=== PATIENT | female | born 1935 | race Caucasian/White ===

== ENCOUNTER 2019-09-22 19:45 | Emergency (ER) | payer MEDICARE ==
[~2019-09-22] VITALS: Ht 161.3 cm; Wt 63.5 kg
--- OUTSIDE RECORDS SUMMARY | 2019-09-22 19:47 | XMS REPORT | Continuity of Care Document ---
Author Author [facility] Address [address] [place] [address] ;ext= Care Team Providers Care Central Office Operator Name Role Phone BEVERLEY DONATO [facility]phys [facility] Admission Diagnosis Code Admission Diagnosis Date [id number] Injury of finger Social History Element Description Code Description Smoking Status Code System Start Date End Date Smoking Status [id number] Never smoker SNOMED-CT Problems Code Code System Problem Name Start Date End Date Status [id number] SNOMED-CT Sprain of wrist 10/25/2018 Active RASH Unknown Active Medications RxNorm Medication Dose Route Instructions Indications Start Date End Date Status [id number] nebivolol 10 MG Oral Tablet 10 milligram oral orally every day Active Synthroid Oral 50 microgram oral orally every day Active 445461 tramadol hydrochloride 50 MG Oral Tablet 50 milligram oral orally every 6 hours as needed. (as needed for pain) pain Active Allergies * No Known Allergies Results Radiology Results Order: [id number] XR WRIST COMP MIN 3 VWS* Exam Completion Date:10/24/2018 15:26 Left wrist 3 views:History: FallPA, oblique and lateral views were obtained. No fracture or dislocation isidentified. There are prominent degenerative changes a t the first CMC joint andscaphomultangular joint. The remaining joint spaces are well-maintained. Thereis mild osteopenia. Mild soft tissue swelling is present. Impression: No acute bony or joint abnormality.This final report was electronica lly signed by Dr Pierce Araiza MD 10/24/20184:17 PMDictated By: HAILEY ARAIZA DDate: 10/24/2018 16:17 Vital Signs Vitals Value Date Body Temperature 98 F 10/24/2018 Pulse Rate 85 (beats)/min 10/24/2018 Respiratory Rate 18 (breaths)/min 10/24/2018 O2% BldC Oximetry 100 % 10/24/2018 BP Systolic 140 mmHg 10/24/2018 BP Diastolic 70 mmHg 10/24/2018 Height 64 in 10/24/2018 Weight Measured 140 lbs 10/24/2018 BSA (Body Surface Area) 1.60487 m2 10/24/2018 BMI (Body Mass Index) 24.1 kg/m2 10/24/2018 Advance Directives POA/LIW Directive Type Effective Date [employer] Room Operator Notes Supporting Document Name Address Phone No Directive Type specified 09/17/2012 21:27 Not Specified Not Specified Not Specified None No Patient HAS Living Will Directive Type Effective Date [employer] Room Operator Notes Supporting Document Name Address Phone No Directive Type specified 11/08/2015 12:32 Not Specified Not Specified Not Specified None No Patient does NOT have Living Will Directive Type Effective Date [employer] Room Operator Notes Supporting Document Name Address Phone No Directive Type specified 04/01/2017 09:19 Not Specified Not Specified Not Specified None No Family History * No Data Reported Plan of Care * No data in the system Procedures Code Code System Procedure Name Target Site Date of Procedure XR WRIST COMP MIN 3 VWS 10/24/2018 16:23 Encounters Date Code Diagnosis Status (ICD10) - H68533F UNSPECIFIED SPRAIN LT WRIST INITIAL Active Immunizations * No data in the system Functional Status * No data in the system Hospital Discharge Instructions * Discharge Instructions 2* Discharge Diagnosis* wrist sprain * Important Information* Consult your physician or return to the Emergency Department immediately if worse, if not better as expected, or if any problems arise. * Follow Up Care* Yes * Important Information* Please understand that you have received care only on an emergency basis. If your condition does not improve, you should call your personal physician for follow-up care. If you do not have a physician, you may call the referred physician listed. * If you have questions about your care or these discharge instructions, you may call the Emergency Department. Please take your discharge paperwork with you to any follow-up appointments. * Follow Up Care* Patient To Schedule * Follow-Up With:* Primary Care Physician * Activity Level* As tolerated, unrestricted * Diet* Regular * Patient Teaching* Patient education provided
--- OUTSIDE RECORDS SUMMARY | 2019-09-22 19:47 | XMS REPORT ---
Author Author [facility] Address Unknown Phone Unavailable Care Team Providers Care Marketing Communications Manager Name Role Phone Kari MERCADO Unavailable Unavailable DR YANI RUEDA Unavailable Unavailable AMILCAR AHN Unavailable Unavailable Problems This patient has no known problems. Allergies, Adverse Reactions, Alerts This patient has no known allergies or adverse reactions. Medications This patient has no known medications. Results Test Description Test Time Test Comments Text Results Atomic Results Result Comments D-DIMER QUANTITATIVE 2019-06-16 13:18:00 D DIMER (test code=D DIM) 0.45 mg/L FEU 0.19-0.50 METHOD CHANGE: 08/17/2012 Due to the discontinued mehodology currently in use, a change in the testing method is necessary. The Reference Ranges will change dramatically, and results are obtained by the observance of clotting activation mesured on the [employer] instruments. This same methodology is currently in use for PT/INR , PTT, AND HEPARIN testing in our Labs. The D-Dimer assay is an aid in the evaluation of thromboembolic events, as in DIC, DVT, Pulmonary Embolism, and other thromboembolic diseases, and should not be used without other diagnostic measures, to properly diagnose and treat thromboembolic disease. REFERENCE RANGE: 0.19 - 0.50 mg/L FEU (Fibrinogen Equivalent Units) Cut-Off Value is: > .50 mg/L FEU Note: Results greater than (>) the Cut-Off are to be considered POSITIVE, and significant in the evaluation of thromboembolic diseases. Results less than (<) the Cut-Off are to be considered NEGATIVE, and a low probability of thromboembolic disease. TROPONIN-I [id number] 13:11:00* Test Item Value Reference Range Comments Troponin-I (test code=TROP) <0.015 ng/ml 0.000-0.034 The 99th Percentile URL is 0.045 ng/mL for the Siemens [place] Troponin I. The Joint Society of Cardiology/[place] College of Cardiology (ESC/ACC) and the National Academy of Clinical Biochemistry Standards of Laboratory Practices (NACB) recommends that the diagnosis of AMI includes the presence of clinical history suggestive of Acute Coronary Syndrome (ACS) and a maximum concentration of cardiac troponin exceeding the 99th percentile of a normal reference population [upper reference limit (URL)] on at least one occasion during the first 24 hours after the clinical event. [id number] 11:32:00* Test Item Value Reference Range Comments Glucose (test code=GLU) 99 mg/dl 75-110 BUN (test code=BUN) 11.0 mg/dl 6.0-17.0 Creatinine (test code=CREA) 0.7 mg/dl 0.4-1.2 Sodium (test code=NA) 137 mmol/l 137-145 Potassium (test code=K) 4.1 mmol/l 3.5-5.0 Chloride (test code=CL) 105 mmol/l 98-107 CO2 (test code=CO2) 29 mmol/l 22-30 Calcium (test code=CALC) 9.4 mg/dl 8.4-10.2 T Protein (test code=TP) 6.4 gm/dl 5.1-8.7 Albumin (test code=ALB) 3.6 gm/dl 3.5-4.6 A/G Ratio (test code=AGRAT) 1.3 % 1.1-2.2 AST (SGOT) (test code=AST) 13 U/L 11-36 ALT (SGPT) (test code=ALT) 20 U/L 11-40 Alkaline Phos (test code=ALKP) 173 U/L 47-114 Total Bilirubin (test code=TBIL) 0.5 mg/dl 0.2-1.2 Globulin (test code=GLOBU) 2.8 gm/dl 2.3-3.5 Calcium, Corrected (test code=CALCCORR) 9.7 mg/dl 8.4-10.2 Various formulas exist for corrected serum calcium results, each yielding different values. This corrected result was based on the formula: Corrected Calcium=SerumCalcium + [0.8 * ( 4 - SerumAlbumin)] EGFR if (test code=EGFRAA) >60 mL/min/1.73m\\S\\2 EGFR if Non- (test code=EGFRNA) >60 mL/min/1.73m\\S\\2 Estimated Glomerular Filtration Rate (eGFR) Reference Intervals Decision Points for 18 years and older and average body mass: >=60 Does not exclude kidney disease. 30 - 59 Suggests moderate chronic kidney disease and indicates the need for further investigation including assessment of proteinuria and cardiovascular factors. < 30 Usually indicates a need for referral for assessment and management of chronic kidney failure. PRO-BNP(B-Type Natriuretic Peptide)2019-06-16 11:32:00* Test Item Value Reference Range Comments Pro-BNP(B-Peptide) (test code=PROBNP) 287 pg/ml 0-450 TROPONIN-I [id number] 11:32:00* Test Item Value Reference Range Comments Troponin-I (test code=TROP) <0.015 ng/ml 0.000-0.034 The 99th Percentile URL is 0.045 ng/mL for the Siemens [place] Troponin I. The Joint Society of Cardiology/[place] College of Cardiology (ESC/ACC) and the National Academy of Clinical Biochemistry Standards of Laboratory Practices (NACB) recommends that the diagnosis of AMI includes the presence of clinical history suggestive of Acute Coronary Syndrome (ACS) and a maximum concentration of cardiac troponin exceeding the 99th percentile of a normal reference population [upper reference limit (URL)] on at least one occasion during the first 24 hours after the clinical event. [id number] 11:29:00* Test Item Value Reference Range Comments Magnesium (test code=MG) 2.3 mg/dl 1.6-2.3 XR CHEST AP/PA 1 [id number] 11:15:11Exam: AP portable chestDATE OF EXAM: 06/16/2019 10:47 AMINDICATION: Chest painThe lungs are clear. The cardiomediastinal silhouette is within normal limits.The bony thorax shows no significant abnormality.Impression:No active cardiopulmonary disease.This final report was electronically signed by Dr Koko Araiza MD 06/16/201911:08 AMDictated By: KOKO ARAIZADate: 06/16/2019 11:08CBC WITH AUTO DIFF 2019-06-16 10:44:00* Test Item Value Reference Range Comments WBC (test code=WBC) 9.69 10\\S\\3/ul 4.80-10.80 RBC (test code=RBC) 4.62 10\\S\\6/ul 4.20-5.40 Hemoglobin (test code=HGB) 13.9 gm/dl 12.0-14.0 Hematocrit (test code=HCT) 41.1 % 37.0-47.0 MCV (test code=MCV) 89.0 fL 81.0-99.0 MCH (test code=MCH) 30.1 pg 27.0-31.0 MCHC (test code=MCHC) 33.8 gm/dl 33.0-37.0 RDW (test code=RDWVC) 14.1 % 11.5-14.5 Platelet (test code=PLT) 240 10\\S\\3/ul 130-400 MPV (test code=MPV) 11.1 fL 7.4-10.4 "NOT MEASURED" RESULTS ARE DISPLAYED WHEN THE INSTRUMENT HAS A SUPPRESSED OR UNREPORTABLE RESULT. THIS WILL MOST OFTEN HAPPEN WITH THE MPV WHEN THERE IS AN ABNORMAL PLATELET DISTRIBUTION DUE TO A CR ITICAL LOW VALUE OR PLATELET CLUMPING. THE RDW MAY BE SUPPRESSED IF THERE ARE MULTIPLE PEAKS PRESENT ON THE RBC HISTOGRAM. IN THIS CASE, A MANUAL REVIEW OF THE SLIDE WILL BE PERFORMED, AND RBC MORPHOLOGY WILL BE NOTED ON THE REPORT. NE% (test code=NE) 67.0 % 42.0-75.0 LY% (test code=LY) 22.6 % 13.0-42.0 MO% (test code=MO) 8.8 % 4.0-14.0 EO% (test code=EO) 0.8 % 1.0-5.0 BA% (test code=BA) 0.5 % 0.0-3.0 IG% (test code=IG%) 0.3 % 0.0-0.4 MM MAMMO SCRN 3D [id number] 10:22:32Procedure: MM MAMMO SCRN 3D TOMOExam Date: 03/31/2019 10:15 AMOrdering Provider: DR YANI GRACIANClinical Indication: Digital screening mammography.Comparison: Mammograms from [facility] dated 12/03/17, 09/17/16 and08/29/15.Technique: 3-D tomosynthesis views of both breasts were obtained. The study isinterpreted using computer-aided detection (CAD).Findings:There are scattered fibroglandular densities in each breast.There are no suspicious masses in either breast.There are benign calcifications in each breast.Postoperative changes and a biopsy clip in the right breast are again noted.Impression:1. Benign digital screening mammograms. Postoperative changes on the right areagain noted.2. Recommend annual mammographic followup.3. Patient is entered into a reminder system with a target due date for the nextmammogram in one year.BIRADS Result 2: Benign find ings.This final report was electronically [place] [id number] AMDictated By: KOKO ARAIZADate: 04/17/2019 10:16CULTURE, URINE 2019-02-01 15:49:00Specimen: Urine Clean CatchCollected: 01/31/2019 09:49 Status: Final Last Updated: 02/01/2019 15:49 Culture Result (Final) (Final) Very Few Mixed Body Mimi Isolated No Pathogens Isolated CT ANGIO CHEST W/WO or W/ [id number] 10:26:0820 g Cathlon Above the Antecubital or higher requiredCTA chest:History: Shortness of breath, chest painCT angiography of the chest was performed using multidetector helical imagingfollowing bolus intravenous injection of 100 mL of Isovue-370. Imagepostprocessing was performed on the same workstation yielding coronal 3-D MIPimages and sagittal reconstructions. Dose reduction technique was employed usingautomated exposure control and adjustment of mA and/or kV according to patientsize. Total DLP 566 mGy-cm.No pulmonary embolus is identified. Atherosclerotic vascular calcification ispresent. The visualized aorta shows scattered plaque but no aneurysmaldilatation, dissection or other acute abnormality.There is mild dependent atelectasis. Minimal peripheral bronchiect atic changesare present in the lower lobes. No consolidation or pleural effusion isidentified. There is no hilar or mediastinal lymphadenopathy. No pericardiale ffusion is identified. 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 The bony thorax appears intact.Sections through the visualized uppe r abdomen show no acute abnormality. Anexophytic cyst arises off the anterior ma rgin of the left kidney.Impression:1. No pulmonary embolus or acute vascular abn ormality.2. Scattered vascular calcification is incidentally noted.3. Minimal ba silar bronchiectasis.This final report was electronically signed by Dr Koko childs MD 01/31/201910:19 AMDictated By: KOKO ARAIZADate: 01/31/2019 10:19 URINALYSIS WITH [id number] 08:27:00* Test Item Value Reference Range Comments Color (test code=UCOLR) LT. YELLOW Clarity (test code=UCLAR) Sl Cloudy Glucose (test code=UGLUC) NEGATIVE NEGATIVE Bilirubin (test code=UBILI) NEGATIVE NEGATIVE Ketones (test code=UKET) TRACE NEGATIVE Specific Wal[place] (test code=USPGR) 1.010 1.005-1.030 Blood (test code=UBLD) TRACE-INTACT NEGATIVE PH (test code=UPH) 7.0 4.5-8.0 Protein (test code=UPROT) NEGATIVE NEGATIVE Urobilinogen (test code=U UROB) 0.2 >0.2 Nitrite (test code=UNITR) NEGATIVE NEGATIVE Leukocyte Esterase (test code=ULEUK) LARGE NEGATIVE WBC (test code=WBCUR) 50-60 0-5 RBC (test code=RBCUR) 2-4 0-5 Epithial Cells (test code=U EPI) 5-10 0-10 Mucous (test code=UMUC) Small None Seen Bacteria (test code=UBACT) 2+ None Seen,Trace Urine Casts (test code=UR CAST) Rare Hyaline Cast None Seen D-DIMER [id number] 08:07:00* Test Item Value Reference Range Comments D DIMER (test code=D DIM) 0.52 mg/L FEU 0.19-0.50 METHOD CHANGE: 08/17/2012 Due to the discontinued mehodology currently in use, a change in the testing method is necessary. The Reference Ranges will change dramatically, and results are obtained by the observance of clotting activation mesured on the [employer] instruments. This same methodology is currently in use for PT/INR , PTT, AND HEPARIN testing in our Labs. The D-Dimer assay is an aid in the evaluation of thromboembolic events, as in DIC, DVT, Pulmonary Embolism, and other thromboembolic diseases, and should not be used without other diagnostic measures, to properly diagnose and treat thromboembolic disease. REFERENCE RANGE: 0.19 - 0.50 mg/L FEU (Fibrinogen Equivalent Units) Cut-Off Value is: > .50 mg/L FEU Note: Results greater than (>) the Cut-Off are to be considered POSITIVE, and significant in the evaluation of thromboembolic diseases. Results less than (<) the Cut-Off are to be considered NEGATIVE, and a low probability of thromboembolic disease. TROPONIN-I [id number] 07:58:00* Test Item Value Reference Range Comments Troponin-I (test code=TROP) <0.015 ng/ml 0.000-0.034 The 99th Percentile URL is 0.045 ng/mL for the Siemens [place] Troponin I. The Joint Society of Cardiology/[place] College of Cardiology (ESC/ACC) and the National Academy of Clinical Biochemistry Standards of Laboratory Practices (NACB) recommends that the diagnosis of AMI includes the presence of clinical history suggestive of Acute Coronary Syndrome (ACS) and a maximum concentration of cardiac troponin exceeding the 99th percentile of a normal reference population [upper reference limit (URL)] on at least one occasion during the first 24 hours after the clinical event. XR CHEST AP/PA 1 [id number] 06:56:13EXAMINATION: XR CHEST AP/PA 1 VIEWINDICATION: [id number]: Chest painCOMPARISON: September 21, 2017FINDINGS: AP viewTUBES and LINES: None.LUNGS: Lungs are well inflated. There is no evidence of pneumonia or pulmonaryedema. Minimal left basilar subsegmental atelectasis.PLEURA: No pleural effusion or pneumothorax.HEART AND MEDIASTINUM: The cardiomediastinal silhouette is unremarkable.BONES AND SOFT TISSUES: No acute osseous lesion. Soft tissues areunremarkable.UPPER ABDOMEN: No free air under the diaphragm.IMPRESSION:No acute thoracic abnormality.This final report was electronically signed by Dr Salvador Gordon MD 01/31/20196:49 AMDictated By: SALVADOR OGRDONDate: 01/31/2019 06:[id number] 06:08:00* Test Item Value Reference Range Comments Glucose (test code=GLU) 102 mg/dl 75-110 BUN (test code=BUN) 11.0 mg/dl 6.0-17.0 Creatinine (test code=CREA) 0.8 mg/dl 0.4-1.2 Sodium (test code=NA) 141 mmol/l 137-145 Potassium (test code=K) 3.6 mmol/l 3.5-5.0 Chloride (test code=CL) 106 mmol/l 98-107 CO2 (test code=CO2) 29 mmol/l 22-30 Calcium (test code=CALC) 9.6 mg/dl 8.4-10.2 T Protein (test code=TP) 7.4 gm/dl 5.1-8.7 Albumin (test code=ALB) 3.9 gm/dl 3.5-4.6 A/G Ratio (test code=AGRAT) 1.1 % 1.1-2.2 AST (SGOT) (test code=AST) 17 U/L 11-36 ALT (SGPT) (test code=ALT) 24 U/L 11-40 Alkaline Phos (test code=ALKP) 210 U/L 47-114 Total Bilirubin (test code=TBIL) 0.5 mg/dl 0.2-1.2 Globulin (test code=GLOBU) 3.5 gm/dl 2.3-3.5 Calcium, Corrected (test code=CALCCORR) 9.7 mg/dl 8.4-10.2 Various formulas exist for corrected serum calcium results, each yielding different values. This corrected result was based on the formula: Corrected Calcium=SerumCalcium + [0.8 * ( 4 - SerumAlbumin)] EGFR if (test code=EGFRAA) >60 mL/min/1.73m\\S\\2 EGFR if Non- (test code=EGFRNA) >60 mL/min/1.73m\\S\\2 Estimated Glomerular Filtration Rate (eGFR) Reference Intervals Decision Points for 18 years and older and average body mass: >=60 Does not exclude kidney disease. 30 - 59 Suggests moderate chronic kidney disease and indicates the need for further investigation including assessment of proteinuria and cardiovascular factors. < 30 Usually indicates a need for referral for assessment and management of chronic kidney failure. [id number] 06:08:00* Test Item Value Reference Range Comments Lipase (test code=LIPA) 268 U/L 8-223 TROPONIN-I [id number] 06:08:00* Test Item Value Reference Range Comments Troponin-I (test code=TROP) <0.015 ng/ml 0.000-0.034 The 99th Percentile URL is 0.045 ng/mL for the Siemens [place] Troponin I. The Joint Society of Cardiology/[place] College of Cardiology (ESC/ACC) and the National Academy of Clinical Biochemistry Standards of Laboratory Practices (NACB) recommends that the diagnosis of AMI includes the presence of clinical history suggestive of Acute Coronary Syndrome (ACS) and a maximum concentration of cardiac troponin exceeding the 99th percentile of a normal reference population [upper reference limit (URL)] on at least one occasion during the first 24 hours after the clinical event. PT AND [id number] 06:08:00* Test Item Value Reference Range Comments Protime (test code=PT) 10.7 seconds 9.0-11.8 INR (test code=INR) 1.0 0.9-1.1 INR results are intended ONLY to monitor Oral Anticoagulant therapy in stablized patients. The INR Therapeutic Range is 2.0 - 3.0 Patients with a mechanical heart, the INR Range is 2.5 - 3.5 [id number] 06:08:00* Test Item Value Reference Range Comments aPTT (test code=PTT) 26.0 seconds 25.3-35.7 CBC WITH AUTO [id number] 05:44:00* Test Item Value Reference Range Comments WBC (test code=WBC) 10.84 10\\S\\3/ul 4.80-10.80 RBC (test code=RBC) 5.02 10\\S\\6/ul 4.20-5.40 Hemoglobin (test code=HGB) 14.9 gm/dl 12.0-14.0 Hematocrit (test code=HCT) 44.6 % 37.0-47.0 MCV (test code=MCV) 88.8 fL 81.0-99.0 MCH (test code=MCH) 29.7 pg 27.0-31.0 MCHC (test code=MCHC) 33.4 gm/dl 33.0-37.0 RDW (test code=RDWVC) 13.9 % 11.5-14.5 Platelet (test code=PLT) 240 10\\S\\3/ul 130-400 MPV (test code=MPV) 10.5 fL 7.4-10.4 "NOT MEASURED" RESULTS ARE DISPLAYED WHEN THE INSTRUMENT HAS A SUPPRESSED OR UNREPORTABLE RESULT. THIS WILL MOST OFTEN HAPPEN WITH THE MPV WHEN THERE IS AN ABNORMAL PLATELET DISTRIBUTION DUE TO A CR ITICAL LOW VALUE OR PLATELET CLUMPING. THE RDW MAY BE SUPPRESSED IF THERE ARE MULTIPLE PEAKS PRESENT ON THE RBC HISTOGRAM. IN THIS CASE, A MANUAL REVIEW OF THE SLIDE WILL BE PERFORMED, AND RBC MORPHOLOGY WILL BE NOTED ON THE REPORT. NE% (test code=NE) 64.6 % 42.0-75.0 LY% (test code=LY) 23.1 % 13.0-42.0 MO% (test code=MO) 9.5 % 4.0-14.0 EO% (test code=EO) 1.8 % 1.0-5.0 BA% (test code=BA) 0.6 % 0.0-3.0 IG% (test code=IG%) 0.4 % 0.0-0.4 XR WRIST COMP MIN 3 [id number] 16:23:50Left wrist 3 views:History: FallPA, oblique and lateral views were obtained. No fracture or dislocation isidentified. There are prominent degenerative changes at the first CMC joint andscaphomultangular joint. The remaining joint spaces are well-maintained. Thereis mild osteopenia. Mild soft tissue swelling is present.Impression: No acute bony or joint abnormality.This final report was electronically signed by Dr Koko Araiza MD 10/24/20184:17 PMDictated By: KOKO ARAIZADate: 10/24/2018 16:17XR CHEST 2 PA [id number] 04:51:53XR CHEST 2 PA LATERAL,Clinical history: CHEST PAIN: Pain-ChestTechnique: XR CHEST 2 PA LATERALComparison: November 08, 2015DISCUSSION:Heart/mediastinum: StableLungs and pleural spaces: Large lung volumes versus mild hyperinflation. Stablesubtle left basilar reticulation, likely atelectasis/scarring. No effusion orpneumot horax.Bones: Multilevel degenerative changes.IMPRESSION:Stable chest without acu te abnormality.This final report was electronically signed by Dr Yadi Craft MD 09/22/20174:45 AMDictated By: Stevenson CRAFT: 09/22/2017 04:51
[2019-09-22] MEDS: LIDOCAINE HCL 1% LOCAL INJ 20 ML VIAL INJ ONE (20:13)
[2019-09-22] MEDS ORDERED: LIDOCAINE HCL 1% LOCAL INJ 20 ML VIAL ONE (20:18)
[2019-09-22 21:25] VITALS: BP 149/72
== END 2019-09-22 21:25 | disposition home or self-care (01) ==
LOC: FSED 19:45
DX: L72.3 Sebaceous cyst (principal); I10 Essential (primary) hypertension; E03.9 Hypothyroidism, unspecified; K21.9 Gastro-esophageal reflux disease without esophagitis
CPT/HCPCS: 10060; 99283; J2001

== ENCOUNTER → 2020-11-26 | Outpatient (CLI) | payer MEDICARE | LOC: MAMMO 12:13 | PROVIDERS: ATTEND Family Medicine | DX: Z12.31 Encounter for screening mammogram for malignant neoplasm of breast (principal) | CPT/HCPCS: 77067 ==

== ENCOUNTER 2021-07-18 02:58 | Emergency (ER) | payer MEDICARE ==
[~2021-07-18] VITALS: Ht 161.3 cm; Wt 63.5 kg
[2021-07-18] MEDS ORDERED: ACETAMINOPHEN 325 MG TAB PO ONE (03:15)
[2021-07-18] MEDS ORDERED: HYDRALAZINE HCL 25 MG TAB PO ONE (03:30)
== END 2021-07-18 07:08 | disposition home or self-care (01) ==
LOC: ER 03:04
DX: U07.1 COVID-19 (principal); R50.9 Fever, unspecified; R05.9 Cough, unspecified; I10 Essential (primary) hypertension; K21.9 Gastro-esophageal reflux disease without esophagitis; E03.9 Hypothyroidism, unspecified
CPT/HCPCS: 99282

== ENCOUNTER 2021-07-25 13:06 | Inpatient (IN) | payer MEDICARE ==
[~2021-07-25] VITALS: Ht 161.3 cm; Wt 63.5 kg
[2021-07-25 13:26] LABS: BASOPHILS % 0.1 % (0.0-1.0); HEMATOCRIT 40.8 % (34.2-44.1); HEMOGLOBIN 13.2 g/dL (12.0-16.0); LYMPHOCYTES # (AUTO) 0.8 (1.0-3.2); LYMPHOCYTES % 4.1 % (18.0-39.1); MEAN CORPUSCULAR HEMOGLOBIN 28.3 pg (28-32); MEAN CORPUSCULAR HGB CONC 32.4 g/dL (31-35); MEAN CORPUSCULAR VOLUME 87.6 fL (81-99); MONOCYTES % 5.3 % (4.4-11.3); NEUTROPHILS # (AUTO) 16.8 (2.1-6.9); NEUTROPHILS % 89.9 % (38.7-80.0); PLATELET COUNT 219 x10e3/uL (140-360); RED BLOOD COUNT 4.66 x10e6/uL (3.6-5.1); RED CELL DISTRIBUTION WIDTH 14.6 % (11.7-14.4)
[2021-07-25 13:44] LABS: ALBUMIN/GLOBULIN RATIO 0.8 (0.8-2.0); ANION GAP 9.6 mmol/L (8-16); CREATININE, SERUM 0.66 mg/dL (0.57-1.11); POTASSIUM 3.6 mmol/L (3.5-5.1)
[2021-07-25] MEDS ORDERED: CEFTRIAXONE 1 GM in SODIUM CHLORIDE 0.9% 50ML 50 ML IV SCH (14:19)
[2021-07-25] MEDS ORDERED: ALBUTEROL SULFATE HFA 8GM INHALATION AEROSOL INH PRN (14:30)
[2021-07-25] MEDS ORDERED: SODIUM CHLORIDE 0.9% 50ML 50 ML ONE (14:44)
[2021-07-25] MEDS ORDERED: PIPERACILLIN/TAZOBACTAM 3.375 GM in SODIUM CHLORIDE 0.9% 50ML 50 ML IV STA (14:50)
[2021-07-25] MEDS ORDERED: SODIUM CHLORIDE FLUSH 10 ML SYR INJ PRN (15:15)
[2021-07-25] MEDS ORDERED: ASPIRIN 81 MG CHEW TAB PO ONE (15:15)
[2021-07-25] MEDS ORDERED: Vancomycin IV 1 GM in SODIUM CHLORIDE 0.9% 250ML 250 ML IV ONE (15:15)
[2021-07-25] MEDS: ENOXAPARIN 30 MG/0.3 ML SYR SC SCH (16:13)
[2021-07-25] MEDS: ASCORBIC ACID 500 MG TAB PO SCH (16:13)
[2021-07-25 17:20] VITALS: BP 160/69
[2021-07-25] MEDS ORDERED: BYSTOLIC10 MG PO (17:40)
[2021-07-25] MEDS ORDERED: VENLAFAXINE HCL25 MG PO (17:40)
[2021-07-25] MEDS ORDERED: zinc PO (17:40)
[2021-07-25] MEDS ORDERED: PRILOSEC OTC20 MG PO (17:40)
[2021-07-25] MEDS ORDERED: VITAMIN D3250 MCG PO (17:40)
[2021-07-25] MEDS ORDERED: UNITHROID50 MCG PO (17:40)
[2021-07-25] MEDS: PIPERACILLIN/TAZOBACTAM 3.375 GM in SODIUM CHLORIDE 0.9% 50ML 50 ML IV SCH (20:20)
[2021-07-25] MEDS ORDERED: SODIUM CHLORIDE 0.9% 250ML 250 ML ONE (20:29)
[2021-07-25 20:50] VITALS: BP 164/78
[2021-07-25 21:06] VITALS: BP 164/78
[2021-07-25] MEDS ORDERED: CLONIDINE HCL 0.1 MG TAB PO ONE (21:15)
[2021-07-25 21:16] LABS: CREATINE KINASE MB 1.1 ng/mL (0-5.0)
[2021-07-26] VITALS (8 sets, daily range): BP systolic 120–163; BP diastolic 70–88
[2021-07-26] MEDS: PIPERACILLIN/TAZOBACTAM 3.375 GM in SODIUM CHLORIDE 0.9% 50ML 50 ML IV SCH ×4 (01:20→21:45)
[2021-07-26 02:04] LABS: CREATINE KINASE MB 0.9 ng/mL (0-5.0)
[2021-07-26] MEDS ORDERED: BISACODYL 5 MG TAB EC PO PRN (03:30)
[2021-07-26] MEDS: LEVOTHYROXINE SODIUM 50 MCG TAB PO SCH (05:26)
[2021-07-26 06:53] LABS: BASOPHILS % 0.1 % (0.0-1.0); EOSINOPHILS % 0.3 % (0.0-6.0); LYMPHOCYTES # (AUTO) 1.3 (1.0-3.2); LYMPHOCYTES % 13.9 % (18.0-39.1); MEAN CORPUSCULAR HEMOGLOBIN 28.4 pg (28-32); MEAN CORPUSCULAR HGB CONC 32.4 g/dL (31-35); MEAN CORPUSCULAR VOLUME 87.5 fL (81-99); MONOCYTES # (AUTO) 0.8 (0.2-0.8); MONOCYTES % 8.4 % (4.4-11.3); NEUTROPHILS % 76.9 % (38.7-80.0); PLATELET COUNT 197 x10e3/uL (140-360); RED BLOOD COUNT 4.23 x10e6/uL (3.6-5.1); RED CELL DISTRIBUTION WIDTH 14.6 % (11.7-14.4)
[2021-07-26 07:20] LABS: ALBUMIN 2.3 g/dL (3.5-5.0); ALBUMIN/GLOBULIN RATIO 0.7 (0.8-2.0); ANION GAP 11.6 mmol/L (8-16); CALCIUM 8.5 mg/dL (8.4-10.2); CREATININE, SERUM 0.62 mg/dL (0.57-1.11); POTASSIUM 3.6 mmol/L (3.5-5.1)
[2021-07-26] MEDS ORDERED: ASCORBIC ACID 500 MG TAB PO SCH (09:00)
[2021-07-26] MEDS: ENOXAPARIN 30 MG/0.3 ML SYR SC SCH (09:30)
[2021-07-26] MEDS: ASCORBIC ACID 500 MG TAB PO SCH ×2 (09:30→17:30)
[2021-07-26] MEDS: NEBIVOLOL 10 MG TAB PO SCH (09:30)
[2021-07-26] MEDS: ZINC SULFATE 50 MG CAP PO SCH (09:30)
[2021-07-26 09:54] LABS: CREATINE KINASE MB 0.8 ng/mL (0-5.0)
[2021-07-26] MEDS ORDERED: ZINC SULFATE 50 MG CAP PO SCH (10:00)
[2021-07-26] MEDS: Vancomycin IV 1 GM in SODIUM CHLORIDE 0.9% 250ML 250 ML IV SCH (10:29)
[2021-07-26] MEDS: OMEPRAZOLE 20 MG CAP PO SCH (12:06)
[2021-07-26] MEDS: DEXAMETHASONE 4 MG TAB PO SCH (12:06)
[2021-07-26] MEDS: ARTIFICIAL TEARS (OPTH) 15 ML BTL OU SCH ×3 (12:52→21:45)
[2021-07-26] MEDS: VENLAFAXINE HCL 25 MG PO SCH (17:00)
[2021-07-26] MEDS: ENOXAPARIN SOD INJ 40 MG/0.4 ML SYR SC SCH (17:30)
[2021-07-26] MEDS: CHOLECALCIFEROL 400 UNIT TAB PO SCH (17:30)
[2021-07-27] VITALS (7 sets, daily range): BP systolic 145–187; BP diastolic 62–86
[2021-07-27] MEDS: PIPERACILLIN/TAZOBACTAM 3.375 GM in SODIUM CHLORIDE 0.9% 50ML 50 ML IV SCH ×4 (01:04→21:36)
[2021-07-27] MEDS: LEVOTHYROXINE SODIUM 50 MCG TAB PO SCH (05:14)
[2021-07-27 08:09] LABS: HEMATOCRIT 40.1 % (34.2-44.1); HEMOGLOBIN 12.8 g/dL (12.0-16.0); LYMPHOCYTES # (AUTO) 0.5 (1.0-3.2); LYMPHOCYTES % 7.8 % (18.0-39.1); MEAN CORPUSCULAR HEMOGLOBIN 28.3 pg (28-32); MEAN CORPUSCULAR HGB CONC 31.9 g/dL (31-35); MEAN CORPUSCULAR VOLUME 88.5 fL (81-99); MONOCYTES # (AUTO) 0.4 (0.2-0.8); MONOCYTES % 5.7 % (4.4-11.3); NEUTROPHILS # (AUTO) 5.3 (2.1-6.9); NEUTROPHILS % 85.8 % (38.7-80.0); PLATELET COUNT 240 x10e3/uL (140-360); RED BLOOD COUNT 4.53 x10e6/uL (3.6-5.1); RED CELL DISTRIBUTION WIDTH 14.5 % (11.7-14.4)
[2021-07-27 08:32] LABS: ALBUMIN 2.4 g/dL (3.5-5.0); ALBUMIN/GLOBULIN RATIO 0.6 (0.8-2.0); ANION GAP 16.6 mmol/L (8-16); CALCIUM 9.3 mg/dL (8.4-10.2); CREATININE, SERUM 0.64 mg/dL (0.57-1.11); POTASSIUM 3.6 mmol/L (3.5-5.1)
[2021-07-27] MEDS: DEXAMETHASONE 4 MG TAB PO SCH (08:45)
[2021-07-27] MEDS: ENOXAPARIN SOD INJ 40 MG/0.4 ML SYR SC SCH (08:46)
[2021-07-27] MEDS: NEBIVOLOL 10 MG TAB PO SCH (08:46)
[2021-07-27] MEDS: ARTIFICIAL TEARS (OPTH) 15 ML BTL OU SCH ×4 (08:46→21:36)
[2021-07-27] MEDS: CHOLECALCIFEROL 400 UNIT TAB PO SCH (08:46)
[2021-07-27] MEDS: ZINC SULFATE 50 MG CAP PO SCH (08:46)
[2021-07-27] MEDS: OMEPRAZOLE 20 MG CAP PO SCH (08:46)
[2021-07-27] MEDS: ASCORBIC ACID 500 MG TAB PO SCH ×2 (08:46→16:24)
[2021-07-27] MEDS ORDERED: NON-FORMULARY MEDICATION (Cholecalciferol (Vitamin D3) (Vitamin D3) 1 TAB) PO SCH (09:00)
[2021-07-27] MEDS: Vancomycin IV 1 GM in SODIUM CHLORIDE 0.9% 250ML 250 ML IV SCH (09:30)
[2021-07-27] MEDS: VENLAFAXINE HCL 25 MG PO SCH (16:24)
[2021-07-28] VITALS (8 sets, daily range): BP systolic 151–180; BP diastolic 68–82
[2021-07-28] MEDS: PIPERACILLIN/TAZOBACTAM 3.375 GM in SODIUM CHLORIDE 0.9% 50ML 50 ML IV SCH ×2 (03:27→08:14)
[2021-07-28] MEDS: LEVOTHYROXINE SODIUM 50 MCG TAB PO SCH (05:38)
[2021-07-28] MEDS: DEXAMETHASONE 4 MG TAB PO SCH (08:14)
[2021-07-28 08:53] LABS: HEMATOCRIT 40.7 % (34.2-44.1); HEMOGLOBIN 13.4 g/dL (12.0-16.0); LYMPHOCYTES # (AUTO) 0.8 (1.0-3.2); LYMPHOCYTES % 5.6 % (18.0-39.1); MEAN CORPUSCULAR HEMOGLOBIN 28.6 pg (28-32); MEAN CORPUSCULAR HGB CONC 32.9 g/dL (31-35); MONOCYTES % 7.1 % (4.4-11.3); NEUTROPHILS # (AUTO) 12.6 (2.1-6.9); NEUTROPHILS % 86.8 % (38.7-80.0); PLATELET COUNT 302 x10e3/uL (140-360); RED BLOOD COUNT 4.68 x10e6/uL (3.6-5.1); RED CELL DISTRIBUTION WIDTH 14.5 % (11.7-14.4)
[2021-07-28] MEDS: VENLAFAXINE HCL 25 MG PO SCH (09:14)
[2021-07-28] MEDS: ARTIFICIAL TEARS (OPTH) 15 ML BTL OU SCH ×4 (09:14→21:22)
[2021-07-28] MEDS: ZINC SULFATE 50 MG CAP PO SCH (09:14)
[2021-07-28] MEDS: ASCORBIC ACID 500 MG TAB PO SCH ×2 (09:14→17:06)
[2021-07-28] MEDS: OMEPRAZOLE 20 MG CAP PO SCH (09:14)
[2021-07-28] MEDS: CHOLECALCIFEROL 400 UNIT TAB PO SCH (09:14)
[2021-07-28] MEDS: Vancomycin IV 1 GM in SODIUM CHLORIDE 0.9% 250ML 250 ML IV SCH (09:14)
[2021-07-28] MEDS: NEBIVOLOL 10 MG TAB PO SCH (09:14)
[2021-07-28 10:04] LABS: ALBUMIN 2.6 g/dL (3.5-5.0); ALBUMIN/GLOBULIN RATIO 0.7 (0.8-2.0); ANION GAP 17.3 mmol/L (8-16); CALCIUM 9.2 mg/dL (8.4-10.2); CREATININE, SERUM 0.7 mg/dL (0.57-1.11); POTASSIUM 3.3 mmol/L (3.5-5.1)
[2021-07-28] MEDS: ENOXAPARIN SOD INJ 40 MG/0.4 ML SYR SC SCH (17:06)
[2021-07-29] VITALS (7 sets, daily range): BP systolic 159–180; BP diastolic 75–86
[2021-07-29 05:00] LABS: BASOPHILS % 0.1 % (0.0-1.0); HEMATOCRIT 38.9 % (34.2-44.1); HEMOGLOBIN 12.6 g/dL (12.0-16.0); LYMPHOCYTES # (AUTO) 0.9 (1.0-3.2); LYMPHOCYTES % 9.5 % (18.0-39.1); MEAN CORPUSCULAR HEMOGLOBIN 28.4 pg (28-32); MEAN CORPUSCULAR HGB CONC 32.4 g/dL (31-35); MEAN CORPUSCULAR VOLUME 87.6 fL (81-99); MONOCYTES # (AUTO) 1.2 (0.2-0.8); MONOCYTES % 12.8 % (4.4-11.3); NEUTROPHILS # (AUTO) 6.9 (2.1-6.9); NEUTROPHILS % 77.3 % (38.7-80.0); PLATELET COUNT 275 x10e3/uL (140-360); RED BLOOD COUNT 4.44 x10e6/uL (3.6-5.1); RED CELL DISTRIBUTION WIDTH 14.4 % (11.7-14.4)
[2021-07-29] MEDS: LEVOTHYROXINE SODIUM 50 MCG TAB PO SCH (05:07)
[2021-07-29 08:41] LABS: ANION GAP 13.3 mmol/L (8-16); CALCIUM 9.1 mg/dL (8.4-10.2); CREATININE, SERUM 0.68 mg/dL (0.57-1.11); POTASSIUM 3.3 mmol/L (3.5-5.1)
[2021-07-29 08:54] LABS: ALBUMIN 2.6 g/dL (3.5-5.0); ALBUMIN/GLOBULIN RATIO 0.7 (0.8-2.0)
[2021-07-29] MEDS: ASCORBIC ACID 500 MG TAB PO SCH ×2 (09:10→16:11)
[2021-07-29] MEDS: CHOLECALCIFEROL 400 UNIT TAB PO SCH (09:10)
[2021-07-29] MEDS: OMEPRAZOLE 20 MG CAP PO SCH (09:10)
[2021-07-29] MEDS: NEBIVOLOL 10 MG TAB PO SCH (09:10)
[2021-07-29] MEDS: DEXAMETHASONE 4 MG TAB PO SCH (09:10)
[2021-07-29] MEDS: ZINC SULFATE 50 MG CAP PO SCH (09:11)
[2021-07-29] MEDS: VENLAFAXINE HCL 25 MG PO SCH (09:19)
[2021-07-29] MEDS: ARTIFICIAL TEARS (OPTH) 15 ML BTL OU SCH ×3 (09:19→16:11)
[2021-07-29] MEDS ORDERED: HYDRALAZINE HCL 20 MG/ML VIAL IV PRN (11:30)
[2021-07-29] MEDS ORDERED: HYDRALAZINE HCL 20 MG/ML VIAL ONE (11:41)
[2021-07-29] MEDS ORDERED: VITAMIN C500 MG PO (15:59)
[2021-07-29] MEDS: ENOXAPARIN SOD INJ 40 MG/0.4 ML SYR SC SCH ×2 (16:11→17:00)
== END 2021-07-29 17:19 | disposition home or self-care (01) | DRG 177 ==
LOC: ER 13:20 → ERHOLD 15:11 → MED/SURG2 16:46
PROVIDERS: ADMIT Family Medicine; ATTEND Family Medicine
PROC: 8E0ZXY6 Isolation (ICD-10-PCS; principal; 2021-07-25)
DX: U07.1 COVID-19 (principal); J12.82 Pneumonia due to coronavirus disease 2019; J96.01 Acute respiratory failure with hypoxia; I10 Essential (primary) hypertension; Z85.3 Personal history of malignant neoplasm of breast; R73.9 Hyperglycemia, unspecified; T38.0X5A Adverse effect of glucocorticoids and synthetic analogues, initial encounter
CPT/HCPCS: 36415; 71045; 71250; 80053; 80202; 82550; 82553; 82948; 83605; 84484; 85025; 87040; 93005; 94799; 99251; 99285; J0360; J0456; J0696; J1650; J2543; J3370; J7050; U0002